=== PATIENT | male | born 1945 | race Caucasian/White ===

== ENCOUNTER → 2016-07-16 | Day surgery (SDC) | payer MEDICARE, OTHER ==
[~2016-07-16] VITALS: Ht 175.3 cm; Wt 83.0 kg
[~2016-07-16] MED LIST: ALBU17IN2 INH; ASPI81TA85 PO; CITRTAB15 PO; CO Q100C10 PO; EPINEPHrine 1MG/10ML SYRINGE 1.5IN As Ordered ONE; GLYCOPYRROLATE INJ 0.2 MG/ML 2 ML VIAL As Ordered ONE; LIDOCAINE 1% SDV INJ 30 ML VIAL As Ordered ONE; LIDOCAINE 2% INJ 100 MG/5 ML SDV (FOR ANES.) As Ordered ONE; LIDOCAINE 4% TOPICAL SOLN 50 ML BTL As Ordered ONE; LIDOCAINE VISCOUS 2% SOLN 15ML UDC As Ordered ONE; LOSA50TA20 PO; LR 1,000 ML IV SCH; MIDAZOLAM INJ 2 MG/2 ML VIAL (J2250) As Ordered ONE; NEOSTIGMINE 1MG/ML 5 ML SYRINGE (J2710) As Ordered ONE; ONDANSETRON 4MG/2ML VIAL (J2405) As Ordered ONE; ONDANSETRON 4MG/2ML VIAL (J2405) IV PRN; PRAV40TA2 PO; PROPOFOL 200 MG/20 ML VIAL As Ordered ONE; ROCURONIUM BROMIDE 50 MG/5 ML VIAL As Ordered ONE; THROMBIN SOLN 20,000 UNITS KIT As Ordered ONE; VITA10006 PO; VITA400T2 PO; dexameTHASONE 4 MG/ML 1ML VIAL (J1100) As Ordered ONE; fentaNYL 250 MCG/5 ML INJECTION (J3010) As Ordered ONE
[2016-07-16 10:41] LABS: MEAN CORPUSCULAR HEMOGLOBIN 27.3 pg (27.0-33.0); MEAN CORPUSCULAR HGB CONC 32.6 g/dl (32.0-36.5); MEAN CORPUSCULAR VOLUME 83.7 fl (80.0-96.0); WHITE BLOOD COUNT 10.7 K/mm3 (4.0-10.0)
[2016-07-16 10:59] LABS: ANION GAP 7 MEQ/L (8-16); BLOOD UREA NITROGEN 18 MG/DL (7-18); CALCIUM LEVEL 9.4 MG/DL (8.8-10.2); CARBON DIOXIDE LEVEL 30 MEQ/L (21-32); CHLORIDE LEVEL 102 MEQ/L (98-107); CREATININE FOR GFR 1.15 MG/DL (0.70-1.30); GLOMERULAR FILTRATION RATE > 60.0 (>42); GLUCOSE, FASTING 116 MG/DL (83-110); POTASSIUM SERUM 4.5 MEQ/L (3.5-5.1); SODIUM LEVEL 139 MEQ/L (136-145)
--- NOTE | 2016-07-16 15:31 | REP ---
PORTABLE CHEST: AP portable view of the chest is performed. There is no pneumothorax. Heart is upper limits of normal in size. There are mildly prominent interstitial markings in each lung base. Signed by Kee Marrufo MD 07/17/2016 04:38 P
[2016-07-16 15:50] VITALS: BP 142/71
--- NOTE | 2016-07-16 16:59 | ECGEPIP ---
Stationary ECG Study [facility] Test Date: 2016-07-16 Pat Name: PEACE AUGUSTINE [place] [facility] [place]: - Gender: M Firmware Engineer: [facility] : 1945 Requested By: XIANG ADAMES Order Number: [id number] Reading MD: Elizabeth Almonte Measurements Intervals [place] Rate: 93 P: 53 SD: 133 QRS: -50 QRSD: 108 T: 61 QT: 357 QTc: 445 Interpretive Statements SINUS RHYTHM POSSIBLE LEFT ATRIAL ENLARGEMENT LEFT ANTERIOR FASCICULAR BLOCK POSSIBLE INFERIOR MYOCARDIAL INFARCTION, PROBABLY OLD MASKED BY MAR NO PRIOR Electronically Signed On 07-16-2016 16:59:36 EST by Elizabeth Almonte
--- NOTE | 2016-07-17 12:02 | RO ---
DATE OF PROCEDURE: 07/16/2016 PREOPERATIVE DIAGNOSIS: Left lower lobe mass, mediastinal and bilateral hilar lymphadenopathy, unknown etiology. POSTOPERATIVE DIAGNOSIS: Left lower lobe mass, mediastinal and bilateral hilar lymphadenopathy, unknown etiology. PROCEDURE: EBUS with multiple fine needle aspirates of the right and left subcarinal regions. SURGEON: Dr. Bravo Martinez TEXTILE DESIGNER: Dr. Edvin Fuentes ANESTHESIA: General. PROCEDURE: The procedure explained and consent obtained. Hague procedure was followed. Mr. Ceballos was intubated and pain and sedation was handled by anesthesia. The bronchoscope was then entered into the trachea. Both the left and right lungs were examined. Normal appearing mucosa and anatomy. There was a small amount of mucoid secretions on the left which were evacuated. No endobronchial lesions. The EBUS scope was then entered into the trachea via the ETT and multiple right sided subcarinal lymph node fine needle aspirates were done. The EBUS scope was then slid down the left main stem and multiple fine needle aspirates were obtained of what appeared to be tumor. The EBUS scope was then repositioned again on the right side of the subcarinal lymph node and more specimens were obtained. Cytology indicated that we had good specimens. At this point, the EBUS scope was removed and the conventional bronchoscope was reintroduced in to the trachea for visual inspection. After ensuring visual hemostasis the bronchoscope was removed. Postoperative chest x-ray pending. FINDINGS: 1. Minimal amount of mucoid secretions on the left. 2. No endobronchial lesions. SPECIMENS: 1. Right sided subcarinal lymph node fine needle aspirate sent to cytology. 2. Left sided subcarinal lymph node and possible tumor fine needle aspirate sent to cytology. [facility]
== END | disposition home or self-care (01) ==
LOC: M SDC 10:12
PROVIDERS: ATTEND Internal Medicine Pulmonary Disease
DX: C34.32 Malignant neoplasm of lower lobe, left bronchus or lung (principal); I25.2 Old myocardial infarction; E11.9 Type 2 diabetes mellitus without complications; I10 Essential (primary) hypertension; E78.5 Hyperlipidemia, unspecified; J44.9 Chronic obstructive pulmonary disease, unspecified; Z79.82 Long term (current) use of aspirin; Z79.899 Other long term (current) drug therapy; Z87.891 Personal history of nicotine dependence
CPT/HCPCS: 31628; 31653; 36415; 71010; 80048; 85027; 88172; 88173; 88305; 88341; 88342; 93005; J1100; J2250; J2405; J2710; J3010

== ENCOUNTER → 2016-07-31 | Outpatient (CLI) | payer MEDICARE, OTHER ==
[~2016-07-31] MED LIST changes: -EPINEPHrine 1MG/10ML SYRINGE 1.5IN As Ordered ONE; -GLYCOPYRROLATE INJ 0.2 MG/ML 2 ML VIAL As Ordered ONE; +ISOVUE-370 76% 100ML VIAL (Q9967) As Ordered ONE; -LIDOCAINE 1% SDV INJ 30 ML VIAL As Ordered ONE; -LIDOCAINE 2% INJ 100 MG/5 ML SDV (FOR ANES.) As Ordered ONE; -LIDOCAINE 4% TOPICAL SOLN 50 ML BTL As Ordered ONE; -LIDOCAINE VISCOUS 2% SOLN 15ML UDC As Ordered ONE; -LR 1,000 ML IV SCH; -MIDAZOLAM INJ 2 MG/2 ML VIAL (J2250) As Ordered ONE; -NEOSTIGMINE 1MG/ML 5 ML SYRINGE (J2710) As Ordered ONE; -ONDANSETRON 4MG/2ML VIAL (J2405) As Ordered ONE; -ONDANSETRON 4MG/2ML VIAL (J2405) IV PRN; -PROPOFOL 200 MG/20 ML VIAL As Ordered ONE; -ROCURONIUM BROMIDE 50 MG/5 ML VIAL As Ordered ONE; -THROMBIN SOLN 20,000 UNITS KIT As Ordered ONE; -dexameTHASONE 4 MG/ML 1ML VIAL (J1100) As Ordered ONE; -fentaNYL 250 MCG/5 ML INJECTION (J3010) As Ordered ONE
--- NOTE | 2016-07-31 16:24 | REP ---
Clinical: Shortness of breath and pleuritic chest pain. Comparison: 07/03/2016 Technique: Axial contrast enhanced images from the thoracic inlet to the upper abdomen using 100 ml Isovue 370 intravenous contrast material with multiplanar re-formations. Findings: Satisfactory enhancement of the pulmonary vasculature is achieved and no filling defects are identified to suggest pulmonary embolus. Atherosclerotic changes to the thoracic aorta noted without aneurysm. Mild cardiomegaly suggested with minimal atherosclerotic changes to the coronary arteries and no pericardial effusion. There is significant conglomerate mediastinal and hilar adenopathy which is similar to prior examination. There is a left infrahilar lower lobe mass which appears to measure roughly 3.2 x 4.5 cm and increased from prior examination. Right middle lobe and bibasilar atelectasis noted. No pleural effusion or pneumothorax. Impression: No evidence for pulmonary embolus. Conglomerate mediastinal and hilar adenopathy with left infrahilar mass lesion increased from prior examination. Findings are compatible with neoplasm and metastatic adenopathy. Pulmonology consultation as well as PET CT may be warranted for further investigation. Signed by Carlos Martinez MD 07/31/2016 04:15 P
== END ==
LOC: M RAD 15:34
PROVIDERS: ATTEND Internal Medicine Medical Oncology
DX: R59.0 Localized enlarged lymph nodes (principal); C34.90 Malignant neoplasm of unspecified part of unspecified bronchus or lung
CPT/HCPCS: 71275; Q9967

== ENCOUNTER → 2016-08-06 | Outpatient (CLI) | payer MEDICARE, OTHER ==
[~2016-08-06] MED LIST changes: -ISOVUE-370 76% 100ML VIAL (Q9967) As Ordered ONE
--- NOTE | 2016-08-11 14:26 | REP ---
Whole body PET CT scan: Comparisons are the CT of the chest dated 07/31/2016 and outside studies from [facility] consisting of chest CT dated 07/03/2016 a nd an AP chest plain film study dated 07/16/2016. Scan is performed from skull base to the upper thighs. Neck and supraclavicular areas: There is uptake in two normal size supraclavicular nodes above the head of the right clavicle,, the standard uptake in the superior most node measuring 2.7 and the inferior most node measuring 4.5. Chest: There is uptake in the patient's known left lower lobe lung mass with the standard uptake value maximally measuring 4.1. There is uptake in the enlarged right hilar nodes with maximal standard uptake value measuring 5.4. There is uptake in the enlarged left hilar nodes with the standard uptake value measuring 3.6. There is uptake in the enlarged subcarinal mediastinal nodes with the standard uptake measure value measuring 05/00. There is uptake in a normal size right paratracheal nodes with the standard uptake value measuring 4.2. There is uptake in aorticopulmonic window nodes with the standard uptake value measuring 4.4. There is uptake in a 1 cm pleural-based nodule in the medial basilar segment of the right lower lobe in the paravertebral location with the standard uptake value measuring 6.8. Upon review, this nodule was not visible on the CT of 07/03/[address] of 07/31/2016. There is focal intense uptake at the anterior tip of the left seventh rib with the standard uptake value measuring 5.9. There is focal uptake along the anterior margin of the right scapula with the standard uptake value measuring 3.0. There is focal uptake posterolateral in the right 10th rib with the standard uptake value measuring 7.0. Abdomen, pelvis and upper thighs: There is focal uptake in the right iliac wing anteriorly with the standard uptake value measuring 6.0, and the right iliac wing posteriorly with the standard uptake value measuring 6.4. There is a tiny focus of uptake in the left femur greater trochanter measuring 1 cm in diameter with the standard uptake value of 2.3. There is a tiny uptake focus in the right acetabulum with the standard uptake value of 4.5. There is uptake in normal size internal iliac nodes bilaterally versus artifact from radio labeling of the internal iliac arteries, with the standard uptake value on the right measuring 8.0 and on the left 7.0. There are three small foci of uptake in the left gluteus jacquelyn muscle with the standard uptake values measuring 3.4, 2.3 and 1.7. There is nonspecific bowel uptake. Impression: There is hypermetabolic uptake in the patient's known left lung mass and in the known bilateral hilar and mediastinal adenopathy. There is also uptake in the cervical nodes on the right. There is uptake in a small 1 cm nodule in the medial basilar segment right lower lobe. This nodule was not visible on the comparison CT scans. Additionally, there is uptake in the left seventh rib and right tenth rib and along the anterior margin of the right scapula. There is uptake in the right iliac wing, left greater trochanter, right acetabulum, internal iliac nodes bilaterally and left gluteus jacquelyn. The study is performed with 8.0 mCi of F 18 FDG. Signed by Kee Kurtz MD 08/11/2016 02:18 P
== END ==
LOC: M RAD 11:01
PROVIDERS: ATTEND Internal Medicine Pulmonary Disease
DX: C34.32 Malignant neoplasm of lower lobe, left bronchus or lung (principal)
CPT/HCPCS: 78815; A9552

== ENCOUNTER → 2016-08-08 | Outpatient (CLI) | payer MEDICARE, OTHER ==
--- NOTE | 2016-08-08 12:17 | REP ---
Clinical: Bilateral hip pain. Technique: Neutral and frog lateral views of the bilateral hips with AP view of the pelvis. Findings: Symmetric age-related changes include increased sclerosis to the acetabular roof with very minimal marginal spurring and mild joint space narrowing. No significant periarticular calcifications are appreciated. No acute fracture or dislocation. Impression: Symmetric age-related changes to the bilateral hips. Signed by Carlos Martinez MD 08/08/2016 12:08 P
== END ==
LOC: M RAD 11:44
PROVIDERS: ATTEND Internal Medicine Medical Oncology
DX: C34.32 Malignant neoplasm of lower lobe, left bronchus or lung (principal)

== ENCOUNTER → 2016-09-25 | Outpatient (CLI) | payer MEDICARE, OTHER ==
--- NOTE | 2016-09-25 10:04 | REP ---
Clinical: Left chest mass. Technique: PA and lateral. Comparison: 07/16/2016. Findings: The mediastinum and cardiac silhouette are stable. Ill-defined perihilar and lower lobe opacities suggest the possibility of underlying adenopathy, atelectasis and infiltrates (left greater than right). Underlying mass lesion cannot definitively be excluded. Small pleural reactions noted. No pneumothorax. Skeletal structures are intact. Impression: Perihilar and lower lobe infiltrates. Underlying adenopathy and mass lesion cannot be excluded. Findings may be slightly more prominent than 07/16/2016. Signed by Carlos Martinez MD 09/25/2016 09:55 A
== END ==
LOC: M RAD 09:23
PROVIDERS: ATTEND Internal Medicine Medical Oncology
DX: R91.8 Other nonspecific abnormal finding of lung field (principal)

== ENCOUNTER 2016-11-18 15:52 | Inpatient (IN) | payer MEDICARE, OTHER ==
[~2016-11-18] VITALS: Ht 179.1 cm; Wt 71.6 kg
[2016-11-18 19:15] VITALS: BP 145/62
[2016-11-18] MEDS ORDERED: ALB2.5NEB INH (20:05)
[2016-11-18] MEDS ORDERED: IPRASOL4 INH (20:05)
[2016-11-18] MEDS ORDERED: OXYC1TAB23 PO (20:05)
[2016-11-18] MEDS ORDERED: PANT40TA2 PO (20:05)
[2016-11-18] MEDS ORDERED: PRED10TA2 PO (20:05)
[2016-11-18] MEDS ORDERED: FURO10IN17 IV (20:05)
[2016-11-18] MEDS ORDERED: GUAI1TAB PO (20:05)
[2016-11-18] MEDS ORDERED: ENOX40IN3 SC (20:05)
[2016-11-18] MEDS ORDERED: BENZ100C5 PO (20:05)
[2016-11-18] MEDS ORDERED: BUDE0.5S6 INH (20:05)
[2016-11-18] MEDS ORDERED: PEG6SYR SC (20:05)
[2016-11-18] MEDS ORDERED: BENZONATATE 100 MG CAP PO PRN (20:15)
[2016-11-18] MEDS ORDERED: ONDANSETRON 4MG/2ML VIAL (J2405) IV PRN (20:15)
[2016-11-18] MEDS ORDERED: PEGFILGRASTIM 6 MG/0.6ML SYR (NEULASTA) (J2505 PER 6MG) SC SCH (20:15)
[2016-11-18 20:42] LABS: MEAN CORPUSCULAR HEMOGLOBIN 30.3 pg (27.0-33.0); RED CELL DISTRIBUTION WIDTH 18.3 % (11.5-14.5); WHITE BLOOD COUNT 14.3 K/mm3 (4.0-10.0)
[2016-11-18 20:57] LABS: MAGNESIUM LEVEL 2.3 MG/DL (1.8-2.4)
[2016-11-18] MEDS ORDERED: LevoFLOXacin IV 500 MG in APPROPRIATE DILUENT 1 EA IV SCH (21:00)
[2016-11-18 21:02] LABS: ALBUMIN 2.4 GM/DL (3.2-5.2); ALKALINE PHOSPHATASE 72 U/L (45-117); ALT/SGPT 41 U/L (12-78); ANION GAP 9 MEQ/L (8-16); AST/SGOT 26 U/L (15-37); BILIRUBIN,TOTAL 0.5 MG/DL (0.2-1.0); BLOOD UREA NITROGEN 41 MG/DL (7-18); CALCIUM LEVEL 7.9 MG/DL (8.8-10.2); CARBON DIOXIDE LEVEL 27 MEQ/L (21-32); CHLORIDE LEVEL 97 MEQ/L (98-107); CREATININE FOR GFR 0.74 MG/DL (0.70-1.30); GLOMERULAR FILTRATION RATE > 60.0 (>42); GLUCOSE, FASTING 134 MG/DL (83-110); POTASSIUM SERUM 4.1 MEQ/L (3.5-5.1); SODIUM LEVEL 133 MEQ/L (136-145); TOTAL PROTEIN 5.4 GM/DL (6.4-8.2)
[2016-11-18] MEDS: BUDESONIDE 0.5 MG/2 ML INHALATION SUSPENSION INH SCH (21:07)
[2016-11-18] MEDS: IPRATROPIUM 0.5MG/ALBUTEROL 2.5MG INH SOL UD 3ML (DUONEB)(J7620) NEB SCH (21:07)
--- NOTE | 2016-11-18 21:40 | REPUSA ---
CT of the chest without contrast Clinical statement: Shortness of breath. Lung cancer. Technique: Multiple axial CT images were obtained with 5 mm cuts through the chest without administra tion of contrast. Comparison: 07/31/2016. Findings: There is no thoracic lymphadenopathy. The visualized portions of the thyroid gland is unrem arkable. There is minimal patchy infiltrate in the left lower lobe. There are interstitial reticulono dular infiltrates throughout the right lung, predominantly in right lower lobe. There is a moderate r ight lower lobe pleural effusion as well. Limited imaging of the upper abdomen demonstrates bilateral adrenal masses. The right adrenal mass measures 4.9 x 2.2 cm, and the left adrenal mass measures 4.0 x 2.9 cm. Cholelithiasis is also noted. There are no suspicious osseous lesions. Impression: 1. Diffuse interstitial reticulonodular infiltrate throughout the right lung, probably the right lowe r lobe with moderate right-sided pleural effusion. 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 No discrete pulmonary nodul es are seen. Clinical correlation is recommended. 2. Minimal patchy infiltrate in the left lower lobe. 3. Bilateral adrenal masses, suspicious for metastatic disease. 4. Cholelithiasis.
--- NOTE | 2016-11-18 21:41 | PHACANCOPD ---
PHARMACY VANCOMYCIN DOSING Pt Demographics Demographics Patient Age:71 , Weight:75.000 , Gender: male Adjusted Body Weight Date: 11/18/16, Adjusted Body Weight: Kg Events Past 24 Hours Events Past 24 Hours: YES: Elevation in WBC, Pending Diagnostics Vancomycin Vancomycin indication: HCAP Vancomycin Target Ranges: 10-20 mcg/ml Vancomycin Load Y/N: Yes Load Dose Date Time Vancomycin Load Dose: 1500mg Date: 11/18/16 Time: 2200 Vancomycin Dose Date: 11/18/16. Current Vancomycin Dose: [1g IV Q12H] Intermittent Dosing?: No Labs Labs Item Value Date Time White Blood Count 14.3 K/mm3 H 11/18/162004 Creatinine 0.74 MG/DL 11/18/162004 C-Reactive Protein, Quantitative 3.07 MG/DL H 11/18/162004 Micro Microbiology 11/18/16 Blood Culture, Received Pending 11/18/16 Blood Culture, Received Pending Creatinine Clearance Date:11/18/16. Estimated Creatinine Clearance: [~60ml/min]. Pending Labs Vancomycin trough scheduled 11/20/16 @0900 Assessment and Plan Maintaining Current Dose?: Yes Reason for dose change: No Dose Change Pharmacist Note Pharmacist Note Date: 11/18/16. Pharmacist note: Day #1 empiric vancomycin tx initiated with a 1500mg loading dose, followed by a maintenance regimen of 1g IV Q12H for the treatment of HCAP - aiming for a goal trough of 10-20mcg/ml. The patient is a transfer from [facility] and is also on day #2 of empiric IV levaquin and IV meropenem. PMH of MRSA is unknown, and there is no PMH of vanco use here at [facility]. WBC, pulse, and CRP are currently elevated. Blood cultures are pending. A vancomycin trough has been scheduled for 11/20/16 @ 0900. We will continue to monitor and make dose adjustments as needed. YOLANDA BAZAN PHARMACY Nov 18, 2016 21:41
[2016-11-18] MEDS: methylPREDNISolone INJ 40 MG/1 ML VIAL (J2920) IV SCH (21:43)
[2016-11-18] MEDS: guaiFENesin ER 600 MG TAB PO SCH (21:43)
[2016-11-18] MEDS: PRAVASTATIN 20 MG TAB PO SCH (21:43)
[2016-11-18] MEDS: MEROPENEM INJ 1 GM in D5W MINI-BAG PLUS 100 ML IV SCH (21:44)
[2016-11-18] MEDS: FUROSEMIDE 20 MG/2 ML VIAL (J1940) IV SCH (21:44)
[2016-11-18] MEDS: SENOKOT S TAB PO SCH (21:44)
--- NOTE | 2016-11-18 21:47 | HPE ---
DATE OF ADMISSION: 11/18/2016 PRIMARY CARE PROVIDER: Dr. Persaud ONCOLOGIST: Crys Osborn MD PUBLIC HEALTH SANITARIAN TECHNICIAN: Shayla Martinez MD CHIEF COMPLAINT: Shortness of breath. HISTORY OF PRESENT ILLNESS: Mr. Ceballos is a 71-year-old male who was transferred from [facility] due to pulmonology/oncology followup. Patient expressed that he went to [facility] on 11/09/2016, due to experiencing shortness of breath. Patient expressed that 3 days before admission he noticed that he became more out of breath and his cough had increased. Patient has been diagnosed with stage IV lung cancer in May 2016. Based on documentation, at this time patient was given palliative chemotherapy with four cycles of cytoxic chemotherapy, after that he started a new chemotherapy and has received two cycles already, but started having shortness of breath a few days before admission to [facility]. Chest x-ray in the emergency room shows right lower lobe pneumonia. Patient's white blood cell count was 24.9 but he received Neulasta 2 weeks before and the differential shows majority of it is neutrophils. Patient has a history of chronic obstructive pulmonary disease (COPD). Also, at home patient was on oxygen as needed, however, patient expressed that 3 days before admission he started using oxygen most of the time, especially at night. Patient stopped smoking cigarettes about 10 years ago and he was exposed to Agent [place] in [place] and asbestos. At [facility], patient was admitted as an inpatient on telemetry. Patient was started on Zosyn and vancomycin and due to possibility of COPD exacerbation, patient was started on breathing treatment and oxygen and continued with home medication. However, patient was transferred to [facility] for followup with oncology and pulmonology care. ALLERGIES: No known allergies. PAST MEDICAL HISTORY: 1. COPD. 2. Hypertension. 3. Osteopenia. 4. Lung cancer. 5. Myocardial infarction ([place]). PAST SURGICAL HISTORY: Aortobifemoral bypass surgery in past. FAMILY HISTORY: Patient does not know about his father or mother since they when he was very young and he was sent for adoption. Patient has one full sister and four or five half brothers and sisters. Patient expressed that his full sister is healthy for her age. Patient has a daughter who is healthy. SOCIAL HISTORY: Patient expressed that he lives alone. Patient was a former smoker. Patient denies illicit drug use. Patient denies alcohol usage. REVIEW OF SYSTEMS: GENERAL: Patient denies fever, chills, night sweats. Patient denies weight loss or weight gain. HEENT: Patient denies acute vision or hearing changes. Patient expressed that he has mild lightheadedness and dizziness when he stands up and when he ambulates. Patient denies problem with chewing food or sinusitis. NECK: Patient denies lumps, bumps, or decreased range of motion of his neck. HEART: Patient denies palpitations, racing or skipping heartbeat or chest pain. LUNGS: Patient expressed that he has shortness of breath, especially with activities, as well as coughing, and sometimes produces white sputum. ABDOMEN: Patient denies abdominal pain, nausea, vomiting, diarrhea, constipation, melena, hematochezia, or hemoptysis. NEUROLOGIC: Patient denies history of transient ischemic attack (TIA), seizure or seizure-type activities. OBJECTIVE: VITAL SIGNS: Temperature 98.2, pulse 110, respiratory rate 18, blood pressure 145/62, pulse oximetry 97% on 3 liters nasal cannula. GENERAL APPEARANCE: Patient was sitting on the bed in no acute distress. Patient was awake, alert, and oriented to time, place, and person. HEENT: Normocephalic, atraumatic. Pupils are equal and reactive to light. Oral mucous is moist. NECK: Soft, supple. No lymphadenopathy. No thyromegaly. No jugular venous distention (JVD). HEART: Regular rate and rhythm, normal S1, S2. LUNGS: Patient has inhale and exhale wheezing as well as scattered rhonchi at the base of the lung. ABDOMEN: Soft, nontender. Positive bowel sounds in all quadrants. EXTREMITIES: Patient has lower extremity edema. +2 pulses in both lower extremities. Patient has decreased strength in both lower and upper extremities possibly secondary to dyspnea. LABORATORY DATA: We have ordered laboratory data and the result is pending at this time. IMAGING STUDIES: Chest x-ray one view which was done on 11/09/2016, shows right lung base infiltration noted which are new as compared to the 05/29/2016 examination. Chest x-ray two views which was done on 11/11/2016, indicated interval development and/or increasing bilateral interstitial lung disease. This could be due to pulmonary edema versus pneumonia and there is suggestion of right lower lobe interstitial and alveolar pneumonia that has decreased at the base and otherwise no significant changes. Chest x-ray which was done on 11/13/2016, indicated worsening right lower lobe. CTA of the chest indicated no evidence of pulmonary embolism, worsening bilateral pneumonia, atelectasis, right greater than left, increased right pleural effusion. Otherwise, no significant changes. Chest x-ray which was done on 11/15/2016, indicated mild improvement in the right lung infiltration, no changes in the small right pleural effusion, and mild interstitial edema. Chest x-ray on 11/16/2016, indicated no change in the small right pleural effusion, right lobe infiltration is mildly worse, no change in the small left lower lobe infiltration, coronary artery disease. ASSESSMENT AND PLAN: 1. Pneumonia. This is possibly obstructive pneumonia secondary to lung cancer versus community-acquired pneumonia. At this time, we have started patient on Levaquin, vancomycin, and meropenem. Also, we have ordered a sputum culture and gram stain, as well as blood culture and the result is pending. Also, we have ordered CT of the chest without contrast and the result is pending at this time. 2. Chronic obstructive pulmonary disease (COPD). At this time, we have started patient on breathing treatments. Also, we have started patient on Solu-Medrol 40 mg IV every 8 hours and patient is on oxygen and Acapella. 3. Hypertension. We will continue patient on losartan 50 mg by mouth daily. 4. Cough. This is possibly secondary to pneumonia versus chronic obstructive pulmonary disease (COPD). Patient is on Tessalon Perles 100 mg by mouth three times a day as needed for cough. 5. Gastroesophageal reflux disease (GERD). Patient is on Protonix 40 mg daily. 6. History of myocardial infarction ([place]). We have ordered echocardiogram. Result is pending at this time. At this time, patient is on aspirin as well as high intensity statin (pravastatin 80 mg by mouth nightly). 7. Deep venous thrombosis (DVT) prophylaxis. Patient is on Lovenox 30 mg subcutaneous daily. My preceptor for this patient encounter was Dr. Marina Terry. The preceptor was physically present in the building during the encounter and was fully available. As needed, all aspects of the patient interview, examination, medical decision making process, and medical care plan development were reviewed and approved by the preceptor. The preceptor is aware and concurs with the plan as stated in the body of this note and will attest to such by his/her cosignature. I have both independently examined this patient as well as reviewed the H&P. I have discussed in detail with the resident the findings and plan of treatment as documented in the residents note. I will continue to follow the patient and offer further guidance to the patients care as necessary during this hospital stay. Marina KUMAR
[2016-11-18] MEDS ORDERED: VANCOMYCIN HCL 1,000 MG in D5W 0 ML IV SCH (22:00)
[2016-11-18] MEDS ORDERED: MERO1INJ IV (22:02)
[2016-11-18] MEDS ORDERED: LEVO750T13 PO (22:03)
[2016-11-18] MEDS: VANCOMYCIN HCL 1,000 MG, VIAL MATE ADAPTER 1 EACH in D5W 250 ML IV SCH (22:32)
[2016-11-18] MEDS ORDERED: VANCOMYCIN HCL 500 MG in D5W MINI-BAG PLUS 100 ML IV ONE (23:00)
[2016-11-19] VITALS (8 sets, daily range): BP systolic 92–120; BP diastolic 42–67
[2016-11-19] MEDS: IPRATROPIUM 0.5MG/ALBUTEROL 2.5MG INH SOL UD 3ML (DUONEB)(J7620) NEB PRN ×2 (01:39→15:51)
[2016-11-19] MEDS: PERCOCET 5MG/325MG TAB PO PRN ×3 (01:53→19:40)
[2016-11-19] MEDS: methylPREDNISolone INJ 40 MG/1 ML VIAL (J2920) IV SCH ×3 (04:32→21:40)
[2016-11-19] MEDS: MEROPENEM INJ 1 GM in D5W MINI-BAG PLUS 100 ML IV SCH ×3 (04:32→21:39)
[2016-11-19 05:19] LABS: MEAN CORPUSCULAR HEMOGLOBIN 29.6 pg (27.0-33.0); MEAN CORPUSCULAR HGB CONC 33.2 g/dl (32.0-36.5); MEAN CORPUSCULAR VOLUME 89.3 fl (80.0-96.0); RED CELL DISTRIBUTION WIDTH 18.1 % (11.5-14.5); WHITE BLOOD COUNT 16.2 K/mm3 (4.0-10.0)
[2016-11-19 05:40] LABS: ANION GAP 6 MEQ/L (8-16); BLOOD UREA NITROGEN 36 MG/DL (7-18); CARBON DIOXIDE LEVEL 27 MEQ/L (21-32); CHLORIDE LEVEL 96 MEQ/L (98-107); CREATININE FOR GFR 0.73 MG/DL (0.70-1.30); GLOMERULAR FILTRATION RATE > 60.0 (>42); GLUCOSE, FASTING 127 MG/DL (83-110); SODIUM LEVEL 129 MEQ/L (136-145); T UPTAKE 40 % (33-40); THYROXINE (T4) 7.9 UG/DL (4.5-12.0)
[2016-11-19] MEDS: IPRATROPIUM 0.5MG/ALBUTEROL 2.5MG INH SOL UD 3ML (DUONEB)(J7620) NEB SCH ×3 (07:11→21:03)
[2016-11-19] MEDS: BUDESONIDE 0.5 MG/2 ML INHALATION SUSPENSION INH SCH ×2 (07:11→21:03)
[2016-11-19] MEDS: ENOXAPARIN 40 MG/0.4 ML SYRINGE (J1650) SC SCH (08:54)
[2016-11-19] MEDS: LevoFLOXacin IV 500 MG in APPROPRIATE DILUENT 1 EA IV SCH (08:54)
[2016-11-19] MEDS: FUROSEMIDE 20 MG/2 ML VIAL (J1940) IV SCH ×2 (08:55→21:40)
[2016-11-19] MEDS: PANTOPRAZOLE 40MG TAB (PROTONIX) PO SCH (08:55)
[2016-11-19] MEDS: LOSARTAN 50 MG TAB PO SCH (08:56)
[2016-11-19] MEDS: ASPIRIN 81 MG ENTERIC TAB PO SCH (08:56)
[2016-11-19] MEDS: SENOKOT S TAB PO SCH ×2 (08:56→21:40)
[2016-11-19] MEDS: guaiFENesin ER 600 MG TAB PO SCH ×2 (08:56→21:40)
[2016-11-19] MEDS: VANCOMYCIN HCL 1,000 MG, VIAL MATE ADAPTER 1 EACH in D5W 250 ML IV SCH ×2 (10:27→22:36)
[2016-11-19 11:12] LABS: OSMOLALITY URINE 485 MOSM/KG (500-800)
--- NOTE | 2016-11-19 12:11 | IPNPDOC ---
Subjective Date Seen The patient was seen on 11/19/16. Subjective Chief Complaint/HPI Patient seen and examined at the bedside this morning. Patient states that his shortness of breath remains the same. He offers no other acute complaints at this time. Objective Physical Examination General Exam: Positive: Alert, Cooperative, No Acute Distress ENT Exam: Positive: Atraumatic, Mucous membr. moist/pink Neck Exam: Negative: JVD Chest Exam: Positive: Clear to auscultation, Diminished, Negative: Rales, Rhonchi Heart Exam: Positive: Rate Normal, Normal S1, Normal S2 Abdomen Exam: Positive: Soft, Negative: Tenderness Extremity Exam: Positive: Other (2+ pitting edema in the lower extremities bilaterally), Negative: Tenderness Psych Exam: Positive: Oriented x 3 Assessment /Plan Plan/VTE VTE Prophylaxis Ordered?: Yes Plan Acute on Chronic Hypoxic Failure possibly 2/2 CAP vs Progression of Underlying Lung Ca CT of the chest notable for diffuse interstitial reticular nodular infiltrate throughout the right lung with 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, possible underlying PNA could not be ruled out The patient is already being empirically covered with IV antibiotics However, the concern remains that the patient's underlying lung cancer progression may be the causative factor in the patient's increased dyspnea and increased supplemental oxygen requirement Oncology consulted We will continue to monitor the patient's respiratory status Chronic obstructive pulmonary disease Continue nebs, IV steroids, and Acapella Hyponatremia Serum sodium noted to be down trending from 133 to 129 this morning Urine studies suggestive of SIADH, 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 ca We will continue to monitor the patient's serum sodium Fluid restricted diet ordered Hypertension, stable Continue losartan History of myocardial infarction 2-D echo pending Continue aspirin, statin Chronic swelling of the lower extremities Continue Lasix Dyslipidemia Continue statin GERD Continue PPI DVT prophylaxis Continue Lovenox Pressure Ulcer Injuries Present on Admission Right + Left Elbow Stage 1 Pressure Injury Lower Coccyx Stage 2 Pressure Injury VS, I&O, 24H, Fishbone Vital Signs/I&O Vital Signs Date Time Temp Pulse Resp B/P (MAP) Pulse Ox O2 Delivery O2 Flow Rate FiO2 11/19/16 11:00 18 11/19/16 08:56 120/58 11/19/16 08:55 Nasal Cannula 3.0 11/19/16 08:00 98.0 103 96 I&O- Last 24 Hours up to 6 AM 11/19/16 06:00 Intake Total 655 ml Output Total 1575 ml Balance -920 ml Laboratory Data 24H LABS Laboratory Tests 2 11/18/16 20:05: Anion Gap 9, Glomerular Filtration Rate > 60.0, Blood Urea Nitrogen 41H, Creatinine 0.74, Sodium Level 133L, Potassium Level 4.1, Chloride Level 97L, Carbon Dioxide Level 27, Calcium Level 7.9L, Aspartate Amino Transf (AST/SGOT) 26, Alanine Aminotransferase (ALT/SGPT) 41, Alkaline Phosphatase 72, Total Bilirubin 0.5, Total Protein 5.4L, Albumin 2.4L, Magnesium Level 2.3, C- Reactive Protein, Quantitative 3.07H, Albumin/Globulin Ratio 0.80L 11/18/16 20:12: B-Type Natriuretic Peptide 182H 11/19/16 04:57: Anion Gap 6L, Glomerular Filtration Rate > 60.0, Blood Urea Nitrogen 36H, Creatinine 0.73, Sodium Level 129L, Potassium Level 4.0, Chloride Level 96L, Carbon Dioxide Level 27, Calcium Level 8.0L, C-Reactive Protein, Quantitative 3.44H, Thyroid Stimulating Hormone (TSH) 1.670, Free Thyroxine Index 3.2, Thyroxine (T4) 7.9, Triiodothyronine (T3) Uptake 40 11/19/16 08:24: Osmolality 279L 11/19/16 10:35: Urine Random Osmolality 485L, Urine Random Sodium 131 CBC/BMP Laboratory Tests 11/18/16 20:05 Red Blood Count 3.76 L, Mean Corpuscular Volume 89.0, Mean Corpuscular Hemoglobin 30.3, Mean Corpuscular Hemoglobin Concent 34.0, Red Cell Distribution Width 18.3 H, Calcium Level 7.9 L, Aspartate Amino Transf (AST/SGOT ) 26, Alanine Aminotransferase (ALT/SGPT) 41, Alkaline Phosphatase 72, Total Bilirubin 0.5, Total Protein 5.4 L, Albumin 2.4 L 11/19/16 04:57 Calcium Level 8.0 L 11/19/16 04:58 Red Blood Count 4.13 L, Mean Corpuscular Volume 89.3, Mean Corpuscular Hemoglobin 29.6, Mean Corpuscular Hemoglobin Concent 33.2, Red Cell Distribution Width 18.1 H Microbiology Microbiology 11/18/16 Blood Culture, Received Pending 11/18/16 Blood Culture, Received Pending 11/18/16 Gram Stain - Final, Resulted 11/18/16 Sputum Culture, Resulted Pending CARLOS GROSS MD Nov 19, 2016 12:11
[2016-11-19] MEDS: PRAVASTATIN 20 MG TAB PO SCH (21:40)
[2016-11-20] VITALS (7 sets, daily range): BP systolic 91–114; BP diastolic 56–68
[2016-11-20] MEDS: IPRATROPIUM 0.5MG/ALBUTEROL 2.5MG INH SOL UD 3ML (DUONEB)(J7620) NEB SCH ×4 (01:57→20:41)
[2016-11-20] MEDS: PERCOCET 5MG/325MG TAB PO PRN ×5 (04:08→22:52)
[2016-11-20] MEDS ORDERED: SLF 3 ML SYR IV PRN (04:15)
[2016-11-20] MEDS: MEROPENEM INJ 1 GM in D5W MINI-BAG PLUS 100 ML IV SCH (05:04)
[2016-11-20] MEDS: methylPREDNISolone INJ 40 MG/1 ML VIAL (J2920) IV SCH (05:04)
[2016-11-20] MEDS: SLF 3 ML SYR IV SCH ×3 (05:05→22:41)
[2016-11-20 06:27] LABS: MEAN CORPUSCULAR HEMOGLOBIN 29.8 pg (27.0-33.0); MEAN CORPUSCULAR HGB CONC 34.1 g/dl (32.0-36.5); MEAN CORPUSCULAR VOLUME 87.2 fl (80.0-96.0); RED CELL DISTRIBUTION WIDTH 17.6 % (11.5-14.5); WHITE BLOOD COUNT 12.4 K/mm3 (4.0-10.0)
[2016-11-20 06:46] LABS: ANION GAP 9 MEQ/L (8-16); BLOOD UREA NITROGEN 32 MG/DL (7-18); CALCIUM LEVEL 8.1 MG/DL (8.8-10.2); CARBON DIOXIDE LEVEL 28 MEQ/L (21-32); CHLORIDE LEVEL 92 MEQ/L (98-107); CREATININE FOR GFR 0.65 MG/DL (0.70-1.30); GLOMERULAR FILTRATION RATE > 60.0 (>42); GLUCOSE, FASTING 132 MG/DL (83-110); POTASSIUM SERUM 3.8 MEQ/L (3.5-5.1); SODIUM LEVEL 129 MEQ/L (136-145)
[2016-11-20] MEDS: BUDESONIDE 0.5 MG/2 ML INHALATION SUSPENSION INH SCH ×2 (07:17→20:41)
[2016-11-20] MEDS: SENOKOT S TAB PO SCH ×3 (10:00→22:40)
[2016-11-20] MEDS: LOSARTAN 50 MG TAB PO SCH (10:00)
[2016-11-20] MEDS: FUROSEMIDE 20 MG/2 ML VIAL (J1940) IV SCH ×2 (10:00→22:40)
[2016-11-20] MEDS: PANTOPRAZOLE 40MG TAB (PROTONIX) PO SCH (10:03)
[2016-11-20] MEDS: ASPIRIN 81 MG ENTERIC TAB PO SCH (10:03)
[2016-11-20] MEDS: guaiFENesin ER 600 MG TAB PO SCH ×3 (10:03→22:40)
[2016-11-20] MEDS: ENOXAPARIN 40 MG/0.4 ML SYRINGE (J1650) SC SCH (10:06)
[2016-11-20] MEDS: LevoFLOXacin IV 500 MG in APPROPRIATE DILUENT 1 EA IV SCH (10:07)
[2016-11-20] MEDS: IPRATROPIUM 0.5MG/ALBUTEROL 2.5MG INH SOL UD 3ML (DUONEB)(J7620) NEB PRN (10:43)
--- NOTE | 2016-11-20 11:30 | IPNPDOC ---
Subjective Date Seen The patient was seen on 11/20/16. Subjective Chief Complaint/HPI Patient seen and examined at the bedside. Denies any acute overnight complaints. Objective Physical Examination General Exam: Positive: Alert, Cooperative, No Acute Distress ENT Exam: Positive: Atraumatic, Mucous membr. moist/pink Neck Exam: Negative: JVD Chest Exam: Positive: Clear to auscultation, Diminished, Negative: Rales, Rhonchi Heart Exam: Positive: Rate Normal, Normal S1, Normal S2 Abdomen Exam: Positive: Soft, Negative: Tenderness Extremity Exam: Positive: Other (1+ pitting edema in the lower extremities bilaterally), Negative: Tenderness Psych Exam: Positive: Oriented x 3 Assessment /Plan Plan/VTE VTE Prophylaxis Ordered?: Yes Plan Acute on Chronic Hypoxic Failure possibly 2/2 CAP vs Progression of Underlying Lung Ca CT of the chest notable for diffuse interstitial reticular nodular infiltrate throughout the right lung with 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, possible underlying PNA could not be ruled out The patient has already been receiving empiric antibiotics since 11/09 from [facility]-- We will D/C the antibiotics at this time CTA of the Chest negative for PE on 11/14/16 from [facility] The concern remains that the patient's underlying lung cancer progression may be the causative factor in the patient's increased dyspnea and increased supplemental oxygen requirement Oncology consulted--awaiting their input Chronic obstructive pulmonary disease Continue nebs, IV steroids, and Acapella Hyponatremia Serum sodium noted to be down trending from 133 to 129 this morning Urine studies suggestive of SIADH, 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 ca We will continue to monitor the patient's serum sodium Fluid restricted diet ordered Hypertension, stable Continue losartan History of myocardial infarction 2-D echo pending Continue aspirin, statin Chronic swelling of the lower extremities Continue Lasix Dyslipidemia Continue statin GERD Continue PPI DVT prophylaxis Continue Lovenox Pressure Ulcer Injuries Present on Admission Right + Left Elbow Stage 1 Pressure Injury Lower Coccyx Stage 2 Pressure Injury VS, I&O, 24H, Fishbone Vital Signs/I&O Vital Signs Date Time Temp Pulse Resp B/P (MAP) Pulse Ox O2 Delivery O2 Flow Rate FiO2 11/20/16 10:08 91/59 (70) 11/20/16 10:04 22 11/20/16 08:00 97.5 115 98 Nasal Cannula 3.0 I&O- Last 24 Hours up to 6 AM 11/20/16 06:00 Intake Total 1500 ml Output Total 2250 ml Balance -750 ml Laboratory Data 24H LABS Laboratory Tests 2 11/20/16 05:56: Anion Gap 9, Glomerular Filtration Rate > 60.0, Blood Urea Nitrogen 32H, Creatinine 0.65L, Sodium Level 129L, Potassium Level 3.8, Chloride Level 92L, Carbon Dioxide Level 28, Calcium Level 8.1L, C-Reactive Protein, Quantitative 1.84H 11/20/16 09:54: Vancomycin Level Trough 13.0 CBC/BMP Laboratory Tests 11/19/16 12:10 11/20/16 05:56 Red Blood Count 3.88 L, Mean Corpuscular Volume 87.2, Mean Corpuscular Hemoglobin 29.8, Mean Corpuscular Hemoglobin Concent 34.1, Red Cell Distribution Width 17.6 H, Calcium Level 8.1 L Microbiology Microbiology 11/18/16 Blood Culture - Preliminary, Resulted No growth after 24 hours . All specim... 11/18/16 Blood Culture - Preliminary, Resulted No growth after 24 hours . All specim... 11/18/16 Gram Stain - Final, Resulted 11/18/16 Sputum Culture, Resulted Pending CARLOS GROSS MD Nov 20, 2016 11:30
[2016-11-20] MEDS: PRAVASTATIN 20 MG TAB PO SCH (22:40)
[2016-11-21] MEDS: IPRATROPIUM 0.5MG/ALBUTEROL 2.5MG INH SOL UD 3ML (DUONEB)(J7620) NEB SCH ×4 (01:31→20:42)
[2016-11-21] MEDS: PERCOCET 5MG/325MG TAB PO PRN ×4 (03:49→20:14)
[2016-11-21 04:48] VITALS: BP 90/48
[2016-11-21] MEDS: SLF 3 ML SYR IV SCH ×3 (05:30→20:15)
--- NOTE | 2016-11-21 06:32 | CR ---
DATE OF CONSULTATION: 11/20/2016 REFERRING PHYSICIAN: Anthony Fajardo MD. REASON FOR CONSULTATION: Stage IV poorly differentiated non-small cell lung carcinoma with evidence of progression. HISTORY OF PRESENT ILLNESS: Dimitris Ceballos is a 71-year-old gentleman, patient that has been followed by Dr. 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 He was initially treated with carboplatin, taxol, diagnosis in August of 2016, next with carboplatin etoposide. Most recent chemotherapy was on 10/21/2016 where he was treated with carboplatin etoposide. Patient was transferred from [facility] after 10 days of treatment with antibiotics for a presumed pneumonia. On transfer to [facility], a CT scan of the chest was done on 11/18/2016 revealing diffuse interstitial reticulonodular infiltrate throughout the right lung, right lower lobe and a moderate right-sided pleural effusion suggestive of lymphangitic carcinomatosis. He currently denies any fevers, cough. He is oxygen dependent. No worsening of his oxygen status at this time. Hematology/oncology was consulted given his prolonged treatment on antibiotics with no significant improvement at the outside hospital. PAST MEDICAL HISTORY: 1. Hypertension. 2. Dyslipidemia. 3. Coronary artery disease status post myocardial infarction (MD) in 2005. 4. Chronic obstructive pulmonary disease (COPD). 5. Peripheral vascular disease. 6. Exposure to asbestos and Agent [employer]. 7. Prior history of tobacco use. PAST SURGICAL HISTORY: 1. Left cataract surgery. 2. Bilateral femoral bypass on cardiac catheterization. MEDICATIONS AT HOME: Include: - losartan - simvastatin - aspirin - albuterol - Citracal - Centrum Silver - vitamin C - CoQ 10 He has been on antibiotics with intravenous (IV) at [facility] Zosyn and vancomycin. ALLERGIES: No known drug allergies. SOCIAL HISTORY: Poly pack-year history of tobacco use. No alcohol use. He is . FAMILY HISTORY: Father with colon cancer. Mother had lung cancer. PHYSICAL EXAMINATION: VITAL SIGNS: Temperature is 98, pulse 100, blood pressure is 98/56, and oxygen saturation is 98% on 3 liters. GENERAL: He does have dyspnea, but he is comfortable in no acute distress. HEENT: No pallor. Anicteric sclerae. Moist mucous membranes. Oropharynx is clear. HEART: Regular rate and rhythm. No murmurs. Normal S1, S2. LUNGS: Decreased breath sounds at the bases. No appreciable crackles or rales. ABDOMEN: Soft, nontender, nondistended. No hepatosplenomegaly or masses. EXTREMITIES: 2+ bilateral pitting edema. LABORATORIES AND STUDIES: CBC with a white count of 12,400, hemoglobin of 11.5, platelets of 215,000. Chemistry panel with a sodium of 129, creatinine is 0.65. 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 IMPRESSION AND RECOMMENDATION: 71-year-old gentleman with metastatic stage IV poorly differentiated non-small cell lung carcinoma, no primary histology identified, PD-L1 low, EGF ROS1 negative with metastases to the bilateral adrenals, skeletal metastases and hilar node involvement, as well as supraclavicular lymph node involvement. He has been treated with carboplatin, taxol, and carboplatin etoposide, now with evidence of progression versus atypical pneumonia. He does appear to be hemodynamically stable and with atypical pneumonia he would presumably be sicker. Although, a bronchoscopy could be considered and munitions worker could be consulted. However, I suspect that this is progression of his metastatic disease. I did discuss next line of therapy, which is a checkpoint inhibitor. Upon discharge, he will followup with Dr. Crys Osborn for further evaluation and discussion of this treatment regimen, which he is willing to proceed with. MTDD
[2016-11-21] MEDS: BUDESONIDE 0.5 MG/2 ML INHALATION SUSPENSION INH SCH ×2 (07:14→20:41)
[2016-11-21 07:15] VITALS: BP 90/50
[2016-11-21] MEDS: ENOXAPARIN 40 MG/0.4 ML SYRINGE (J1650) SC SCH (07:54)
[2016-11-21] MEDS: ASPIRIN 81 MG ENTERIC TAB PO SCH (07:54)
[2016-11-21] MEDS: SENOKOT S TAB PO SCH ×2 (07:56→20:15)
[2016-11-21] MEDS: PANTOPRAZOLE 40MG TAB (PROTONIX) PO SCH (07:56)
[2016-11-21] MEDS: guaiFENesin ER 600 MG TAB PO SCH ×2 (07:56→20:18)
[2016-11-21] MEDS: FUROSEMIDE 20 MG/2 ML VIAL (J1940) IV SCH ×2 (07:58→20:34)
[2016-11-21] MEDS ORDERED: predniSONE 20 MG TAB PO SCH (09:00)
[2016-11-21] MEDS: LOSARTAN 50 MG TAB PO SCH (09:00)
[2016-11-21] MEDS: IPRATROPIUM 0.5MG/ALBUTEROL 2.5MG INH SOL UD 3ML (DUONEB)(J7620) NEB PRN (10:02)
--- NOTE | 2016-11-21 10:50 | IPNPDOC ---
Subjective Date Seen The patient was seen on 11/21/16. Subjective Chief Complaint/HPI Patient seen and examined at the bedside. States that he remains short of breath. Denies any acute overnight complaints. Objective Physical Examination General Exam: Positive: Alert, Cooperative, No Acute Distress ENT Exam: Positive: Atraumatic, Mucous membr. moist/pink Neck Exam: Negative: JVD Chest Exam: Positive: Clear to auscultation, Diminished, Negative: Rales, Rhonchi Heart Exam: Positive: Rate Normal, Normal S1, Normal S2 Abdomen Exam: Positive: Soft, Negative: Tenderness Extremity Exam: Positive: Other (1+ pitting edema in the lower extremities bilaterally), Negative: Tenderness Psych Exam: Positive: Oriented x 3 Assessment /Plan Plan/VTE VTE Prophylaxis Ordered?: Yes Plan Acute on Chronic Hypoxic Failure possibly 2/2 CAP vs Progression of Underlying Lung Ca CT of the chest notable for diffuse interstitial reticular nodular infiltrate throughout the right lung with 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, possible underlying PNA could not be ruled out The patient had already been receiving empiric antibiotics since 11/09 from [facility]-- We will D/C the antibiotics at this time CTA of the Chest negative for PE on 11/14/16 from [facility] The concern remains that the patient's underlying lung cancer progression may be the causative factor in the patient's increased dyspnea and increased supplemental oxygen requirement Oncology input appreciated--patient will need to f/u as outpatient for next line therapy Chronic obstructive pulmonary disease Continue nebs, Tapering PO steroids, and Acapella Hyponatremia Urine studies suggestive of SIADH, 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 We will continue to assess his functional status with physical therapy. I did discuss the need for possible rehabilitation/halfway placement for the patient in view of his limitations. VS, I&O, 24H, Fishbone Vital Signs/I&O Vital Signs Date Time Temp Pulse Resp B/P (MAP) Pulse Ox O2 Delivery O2 Flow Rate FiO2 11/21/16 07:55 24 Room Air 11/21/16 07:47 3.0 11/21/16 07:15 97.2 110 90/50 (59) 98 I&O- Last 24 Hours up to 6 AM 11/21/16 06:00 Intake Total 410 ml Output Total 1025 ml Balance -615 ml Laboratory Data Microbiology Microbiology 11/18/16 Blood Culture - Preliminary, Resulted No Growth after 48 hours. All Specime... 11/18/16 Blood Culture - Preliminary, Resulted No Growth after 48 hours. All Specime... 11/18/16 Gram Stain - Final, Resulted 11/18/16 Sputum Culture, Resulted Pending CARLOS GROSS MD Nov 21, 2016 10:49
[2016-11-21 12:00] VITALS: BP 100/60
[2016-11-21 14:00] VITALS: O2SAT 97
[2016-11-21 16:00] VITALS: BP 128/74
--- NOTE | 2016-11-21 20:00 | ECHO ---
DATE OF PROCEDURE: 11/19/2016 DATE OF : 1945 PATIENT LOCATION: Room 3212 REASON FOR THE ECHOCARDIOGRAM: Edema. REFERRING PROVIDER: Dr. Terry 2D MEASUREMENTS: IVS: 1.1 cm LVPW: 1.1 cm LV: 4.5 cm LA: 2.8 cm Aorta: 3.5 cm IVC: 1.9 cm DOPPLER MEASUREMENTS: Peak velocity across the aortic valve: 0.82 m/s Peak velocity across the LVOT: 0.7 m/s Mitral E: 0.48, Mitral A: 0.58 with a ratio of 0.83 Maximum tricuspid valve velocity: 2.9 m/s 2D COMMENTS: 1. Technically limited study due to poor acoustic window. 2. The left ventricular size is normal but left ventricular systolic function appeared to be mildly depressed in limited views. The basal and mid anterior septum appear to be hypokinetic. The estimated global left ventricular systolic ejection fraction is 45%. 3. Normal left atrium. Normal right atrium and right ventricle. 4. The atrial septum did not reveal any defect or shunt. 5. Normal aortic root. 6. No pericardial effusion. 7. The aortic valve, mitral valve, tricuspid valve, and pulmonic valve appear to be normal. The proximal pulmonary artery branches were not well visualized. 8. The inferior vena cava appeared to be normal in size, central venous pressure is probably normal. DOPPLER: It detects mild mitral regurgitation and mild to moderate tricuspid regurgitation. The calculated pulmonary artery systolic pressure varied between 40-50 mmHg. Abnormal relaxation pattern was noted across the mitral valve annulus consistent with grade 1 left ventricular diastolic dysfunction. IMPRESSION: 1. Normal global left ventricular systolic function. There were some features of left ventricular diastolic dysfunction, grade 1. 2. Mild mitral regurgitation. 3. Mild to moderate tricuspid regurgitation with moderate pulmonary hypertension. 4. Aortic valve sclerosis without stenosis or aortic regurgitation. 5. The patient was noted during the test to be mildly tachycardic, probably mild sinus tachycardia with a heart rate that varied at times between 100 and 110 beats per minute. MTDD
[2016-11-21] MEDS: PRAVASTATIN 20 MG TAB PO SCH (20:15)
[2016-11-21 22:00] VITALS: BP 96/46
[2016-11-22] MEDS: IPRATROPIUM 0.5MG/ALBUTEROL 2.5MG INH SOL UD 3ML (DUONEB)(J7620) NEB SCH ×4 (02:20→20:08)
[2016-11-22] MEDS: PERCOCET 5MG/325MG TAB PO PRN ×3 (03:19→13:27)
[2016-11-22 06:00] VITALS: BP 103/59
[2016-11-22] MEDS: ACETAMINOPHEN TAB 650MG DOSE (2X325MG) PO PRN (06:02)
[2016-11-22] MEDS: SLF 3 ML SYR IV SCH ×3 (06:03→19:53)
[2016-11-22] MEDS: BUDESONIDE 0.5 MG/2 ML INHALATION SUSPENSION INH SCH ×2 (07:14→20:06)
[2016-11-22] MEDS: PANTOPRAZOLE 40MG TAB (PROTONIX) PO SCH (08:20)
[2016-11-22] MEDS: FUROSEMIDE 20 MG/2 ML VIAL (J1940) IV SCH ×2 (08:20→20:00)
[2016-11-22] MEDS: SENOKOT S TAB PO SCH ×2 (08:21→19:52)
[2016-11-22] MEDS: ASPIRIN 81 MG ENTERIC TAB PO SCH (08:21)
[2016-11-22] MEDS: ENOXAPARIN 40 MG/0.4 ML SYRINGE (J1650) SC SCH (08:23)
[2016-11-22 08:51] LABS: ANION GAP 9 MEQ/L (8-16); BLOOD UREA NITROGEN 50 MG/DL (7-18); CALCIUM LEVEL 8.8 MG/DL (8.8-10.2); CARBON DIOXIDE LEVEL 26 MEQ/L (21-32); CHLORIDE LEVEL 94 MEQ/L (98-107); CREATININE FOR GFR 0.66 MG/DL (0.70-1.30); GLOMERULAR FILTRATION RATE > 60.0 (>42); GLUCOSE, FASTING 114 MG/DL (83-110); POTASSIUM SERUM 3.9 MEQ/L (3.5-5.1); SODIUM LEVEL 129 MEQ/L (136-145)
[2016-11-22] MEDS ORDERED: predniSONE 10 MG TAB PO SCH (09:00)
[2016-11-22] MEDS: guaiFENesin ER 600 MG TAB PO SCH ×2 (09:00→19:52)
[2016-11-22] MEDS: LOSARTAN 50 MG TAB PO SCH (09:00)
[2016-11-22 09:14] LABS: MEAN CORPUSCULAR HEMOGLOBIN 29.8 pg (27.0-33.0); MEAN CORPUSCULAR VOLUME 87.5 fl (80.0-96.0); RED CELL DISTRIBUTION WIDTH 17.2 % (11.5-14.5); WHITE BLOOD COUNT 19.4 K/mm3 (4.0-10.0)
--- NOTE | 2016-11-22 11:44 | IPNPDOC ---
Subjective Date Seen The patient was seen on 11/22/16. Subjective Chief Complaint/HPI Patient seen and examined at the bedside. States that he still has bouts of shortness of breath but otherwise is comfortable. Objective Physical Examination General Exam: Positive: Alert, Cooperative, No Acute Distress ENT Exam: Positive: Atraumatic, Mucous membr. moist/pink Neck Exam: Negative: JVD Chest Exam: Positive: Clear to auscultation, Diminished, Negative: Rales, Rhonchi Heart Exam: Positive: Rate Normal, Normal S1, Normal S2 Abdomen Exam: Positive: Soft, Negative: Tenderness Extremity Exam: Positive: Other (1+ pitting edema in the lower extremities bilaterally), Negative: Tenderness Psych Exam: Positive: Oriented x 3 Assessment /Plan Plan/VTE VTE Prophylaxis Ordered?: Yes Plan Acute on Chronic Hypoxic Failure possibly 2/2 CAP vs Progression of Underlying Lung Ca CT of the chest notable for diffuse interstitial reticular nodular infiltrate throughout the right lung with 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, possible underlying PNA could not be ruled out The patient had already been receiving empiric antibiotics since 11/09 from [facility]-- We will D/C the antibiotics at this time CTA of the Chest negative for PE on 11/14/16 from [facility] The concern remains that the patient's underlying lung cancer progression may be the causative factor in the patient's increased dyspnea and increased supplemental oxygen requirement Oncology input appreciated--at this time it appears that the patient has seen a significant functional decline in his performance status 2/2 SOB from underlying malignancy. His options include possible hospice placement vs inpatient chemotherapy. The family is still trying to decide what the option would be. We will follow up Chronic obstructive pulmonary disease Continue nebs, Tapering PO steroids, and Acapella Hyponatremia Urine studies suggestive of SIADH, 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 At this time it appears that the patient has seen a significant functional decline in his performance status 2/2 SOB. His options include possible hospice placement vs inpatient chemotherapy. We will follow up with the patient and family decision. PFS on board. Continue PT in the interim. VS, I&O, 24H, Fishbone Vital Signs/I&O Vital Signs Date Time Temp Pulse Resp B/P (MAP) Pulse Ox O2 Delivery O2 Flow Rate FiO2 11/22/16 09:00 95/55 11/22/16 08:19 18 11/22/16 06:00 97.0 103 90 Nasal Cannula 3.0 I&O- Last 24 Hours up to 6 AM 11/22/16 06:00 Intake Total 720 ml Output Total 950 ml Balance -230 ml Laboratory Data 24H LABS Laboratory Tests 2 11/22/16 08:10: Anion Gap 9, Glomerular Filtration Rate > 60.0, Blood Urea Nitrogen 50#H, Creatinine 0.66L, Sodium Level 129L, Potassium Level 3.9, Chloride Level 94L, Carbon Dioxide Level 26, Calcium Level 8.8 CBC/BMP Laboratory Tests 11/22/16 08:10 Calcium Level 8.8 11/22/16 08:50 Red Blood Count 4.13 L, Mean Corpuscular Volume 87.5, Mean Corpuscular Hemoglobin 29.8, Mean Corpuscular Hemoglobin Concent 34.0, Red Cell Distribution Width 17.2 H Microbiology Microbiology 11/18/16 Blood Culture - Preliminary, Resulted No Growth after 72 hours. All specime... 11/18/16 Blood Culture - Preliminary, Resulted No Growth after 72 hours. All specime... 11/18/16 Gram Stain - Final, Complete 11/18/16 Sputum Culture - Final, Complete CARLOS GROSS MD Nov 22, 2016 11:44
[2016-11-22] MEDS: IPRATROPIUM 0.5MG/ALBUTEROL 2.5MG INH SOL UD 3ML (DUONEB)(J7620) NEB PRN (11:55)
[2016-11-22] MEDS ORDERED: NALOXONE INJ 0.4 MG/1 ML VIAL (J2310) IV PRN (13:45)
[2016-11-22] MEDS ORDERED: MORPHINE 2 MG/ML 1ML SYRINGE IV PRN (13:45)
[2016-11-22] MEDS: oxyCODONE 10 MG CR TAB PO SCH ×2 (13:56→19:51)
[2016-11-22 14:00] VITALS: BP 112/67
--- NOTE | 2016-11-22 14:34 | CR ---
DATE: 11/22/2016 REASON FOR CONSULTATION: Prognosis of advanced lung cancer. HISTORY OF PRESENT ILLNESS: Mr. Ceballos is a 71-year-old man with known metastatic lung cancer with bone metastases, initially diagnosed in July 2016. He has been receiving chemotherapy initially with carboplatin/paclitaxel and switched to carboplatin/etoposide chemotherapy for disease progression. He is currently admitted for increasing shortness of breath with a chest CT showing diffuse interstitial reticular nodular infiltrate throughout the right lung, moderate right sided pleural effusion, the former was suggestive of lymphangitic carcinomatosis. There was also note of bilateral adrenal masses, suspicious for metastatic disease. Mr. Ceballos had a discussion on treatment options with Dr. Qureshi two days ago, but wanted an update on his prognosis. I was therefore called to see him today. PHYSICAL EXAMINATION: Mr. Ceballos was lying comfortably on the bed, not in distress. Oxygen saturation 90% on 3 liters nasal cannula. He had no oral mucosal lesions. Lungs with fair air entry. No rales, rhonchi or wheezes. Abdomen was soft, nontender. No guarding. Positive bowel sounds. Extremities with bilateral lower extremity edema. IMPRESSION AND PLAN: I discussed with Mr. Ceballos that he has a fairly aggressive lung cancer. He went through two lines of treatment with no significant response. With the first line he did have disease progression after two cycles. With the second chemotherapy regimen, specifically carboplatin/etoposide, he apparently had stable disease but the most recent CT scan shows disease progression. I discussed that in this scenario, treatment options include additional chemotherapy, such as Docetaxel chemotherapy or immunotherapy such as Nivolumab. I discussed that chemotherapy would not be a prudent option for him as his performance status is suboptimal. The second option would be immunotherapy, which in general is fairly well tolerated but could cause immunological reaction, such as hepatitis, dermatitis, gastroenteritis, thyroiditis, and pneumonitis. Immunotherapy usually takes some time to take effect and Mr. Ceballos may not have that luxury of time on hand because of the aggressiveness of his lung cancer. I discussed all options with him. It seems that he cannot go home and needs to be discharged to a [facility]pc. Another option that I discussed was hospice care. I discussed the logistics of hospice care with Mr. Ceballos. After our discussion, he wanted more time to think about the above options before making a decision. I also discussed that he could wait for Dr. Osborn, his primary medical oncologist for a further discussion on his treatment options. For now, Mr. Ceballos wanted more time to think about the hospice option or further treatment and he also wanted to speak to Dr. Osborn. Thank you for this referral. STACY
[2016-11-22] MEDS: PRAVASTATIN 20 MG TAB PO SCH (19:52)
[2016-11-22 20:03] VITALS: BP 86/50
[2016-11-22 22:00] VITALS: BP 115/57
[2016-11-23] MEDS: PERCOCET 5MG/325MG TAB PO PRN ×5 (00:02→18:33)
[2016-11-23] MEDS: IPRATROPIUM 0.5MG/ALBUTEROL 2.5MG INH SOL UD 3ML (DUONEB)(J7620) NEB SCH ×4 (01:15→19:56)
[2016-11-23 05:48] LABS: MEAN CORPUSCULAR HGB CONC 33.8 g/dl (32.0-36.5); MEAN CORPUSCULAR VOLUME 88.8 fl (80.0-96.0); RED CELL DISTRIBUTION WIDTH 17.4 % (11.5-14.5)
[2016-11-23 05:50] LABS: ANION GAP 6 MEQ/L (8-16); BLOOD UREA NITROGEN 42 MG/DL (7-18); CALCIUM LEVEL 8.3 MG/DL (8.8-10.2); CARBON DIOXIDE LEVEL 31 MEQ/L (21-32); CHLORIDE LEVEL 94 MEQ/L (98-107); CREATININE FOR GFR 0.62 MG/DL (0.70-1.30); GLOMERULAR FILTRATION RATE > 60.0 (>42); GLUCOSE, FASTING 102 MG/DL (83-110); POTASSIUM SERUM 3.9 MEQ/L (3.5-5.1); SODIUM LEVEL 131 MEQ/L (136-145)
[2016-11-23] MEDS: SLF 3 ML SYR IV SCH ×3 (05:55→21:34)
[2016-11-23 06:00] VITALS: BP 119/58
[2016-11-23] MEDS: BUDESONIDE 0.5 MG/2 ML INHALATION SUSPENSION INH SCH ×2 (07:14→19:56)
[2016-11-23] MEDS: ACETAMINOPHEN TAB 650MG DOSE (2X325MG) PO PRN (08:21)
[2016-11-23] MEDS: PANTOPRAZOLE 40MG TAB (PROTONIX) PO SCH (08:22)
[2016-11-23] MEDS: oxyCODONE 10 MG CR TAB PO SCH ×2 (08:22→21:33)
[2016-11-23] MEDS: ASPIRIN 81 MG ENTERIC TAB PO SCH (08:22)
[2016-11-23] MEDS: ENOXAPARIN 40 MG/0.4 ML SYRINGE (J1650) SC SCH (08:22)
[2016-11-23 09:00] VITALS: BP 119/58
[2016-11-23] MEDS: SENOKOT S TAB PO SCH ×2 (09:00→21:34)
[2016-11-23] MEDS: LOSARTAN 50 MG TAB PO SCH (09:00)
[2016-11-23] MEDS ORDERED: predniSONE 20 MG TAB PO SCH (09:00)
[2016-11-23] MEDS: FUROSEMIDE 20 MG TAB PO SCH ×2 (09:00→16:28)
[2016-11-23] MEDS ORDERED: MOM 30ML SUSPENSION UDC PO PRN (10:15)
--- NOTE | 2016-11-23 11:46 | IPNPDOC ---
Subjective Date Seen The patient was seen on 11/23/16. Subjective Chief Complaint/HPI Patient seen and examined at the bedside this morning. States that his respiratory status is stable at this time, however he does feel significantly short of breath with ambulation and sometimes at rest. Notes that his pain is currently well controlled. Denies any acute overnight complaints. Objective Physical Examination General Exam: Positive: Alert, Cooperative, No Acute Distress ENT Exam: Positive: Atraumatic, Mucous membr. moist/pink Neck Exam: Negative: JVD Chest Exam: Positive: Clear to auscultation, Diminished, Negative: Rales, Rhonchi Heart Exam: Positive: Rate Normal, Normal S1, Normal S2 Abdomen Exam: Positive: Soft, Negative: Tenderness Extremity Exam: Positive: Other (2+ pitting edema in the lower extremities bilaterally), Negative: Tenderness Psych Exam: Positive: Oriented x 3 Assessment /Plan Plan/VTE VTE Prophylaxis Ordered?: Yes Plan Acute on Chronic Hypoxic Failure possibly 2/2 CAP vs Progression of Underlying Lung Ca CT of the chest notable for diffuse interstitial reticular nodular infiltrate throughout the right lung with 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, possible underlying PNA could not be ruled out The patient had already been receiving empiric antibiotics since 11/09 from [facility]-- We will D/C the antibiotics at this time CTA of the Chest negative for PE on 11/14/16 from [facility] The concern remains that the patient's underlying lung cancer progression may be the causative factor in the patient's increased dyspnea and increased supplemental oxygen requirement Oncology input appreciated--at this time it appears that the patient has seen a significant functional decline in his performance status 2/2 SOB from underlying malignancy. His options include possible hospice placement vs inpatient chemotherapy. The family is still trying to decide what the option would be. We will follow up Chronic obstructive pulmonary disease Continue nebs, Tapering PO steroids, and Acapella Hyponatremia Urine studies suggestive of SIADH, 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 ca We will continue to monitor the patient's serum sodium Fluid restricted diet ordered Hypertension, stable History of myocardial infarction Continue aspirin, statin Diastolic congestive heart failure, compensated 2-D echocardiogram reveals preserved global left ventricular ejection fraction, stage I diastolic dysfunction Continue Lasix Dyslipidemia Continue statin GERD Continue PPI DVT prophylaxis Continue Lovenox Pressure Ulcer Injuries Present on Admission Right + Left Elbow Stage 1 Pressure Injury Lower Coccyx Stage 2 Pressure Injury Dispo--the patient remains limited from short of breath secondary to progression of underlying lung cancer. At this time it appears that the patient has seen a significant functional decline in his performance status 2/2 SOB. His options include possible hospice placement vs inpatient chemotherapy. We will follow up with the patient and family decision. PFS on board. Continue PT in the interim. VS, I&O, 24H, Fishbone Vital Signs/I&O Vital Signs Date Time Temp Pulse Resp B/P (MAP) Pulse Ox O2 Delivery O2 Flow Rate FiO2 11/23/16 09:00 119/58 11/23/16 08:22 18 11/23/16 07:45 Nasal Cannula 3.0 11/23/16 06:00 97.8 90 95 I&O- Last 24 Hours up to 6 AM 11/23/16 05:59 Intake Total 780 ml Output Total 2200 ml Balance -1420 ml Laboratory Data 24H LABS Laboratory Tests 2 11/23/16 05:18: Anion Gap 6L, Glomerular Filtration Rate > 60.0, Blood Urea Nitrogen 42H, Creatinine 0.62L, Sodium Level 131L, Potassium Level 3.9, Chloride Level 94L, Carbon Dioxide Level 31, Calcium Level 8.3L CBC/BMP Laboratory Tests 11/23/16 05:18 Red Blood Count 3.93 L, Mean Corpuscular Volume 88.8, Mean Corpuscular Hemoglobin 30.0, Mean Corpuscular Hemoglobin Concent 33.8, Red Cell Distribution Width 17.4 H, Calcium Level 8.3 L Microbiology Microbiology 11/18/16 Blood Culture - Preliminary, Resulted No Growth after 72 hours. All specime... 11/18/16 Blood Culture - Preliminary, Resulted No Growth after 72 hours. All specime... 11/18/16 Gram Stain - Final, Complete 11/18/16 Sputum Culture - Final, Complete CARLOS GROSS MD Nov 23, 2016 11:46
[2016-11-23 14:00] VITALS: BP 123/55
[2016-11-23] MEDS ORDERED: PERCOCET 5MG/325MG TAB PO PRN (18:15)
[2016-11-23] MEDS ORDERED: PERCOCET 5MG/325MG TAB PO ONE (18:20)
[2016-11-23] MEDS ORDERED: guaiFENesin ER 600 MG TAB PO PRN (21:00)
[2016-11-23] MEDS: PRAVASTATIN 20 MG TAB PO SCH (21:33)
[2016-11-23 22:00] VITALS: BP 117/63
[2016-11-24 00:45] VITALS: BP_SYST 100; BP_SYST 117; BP_DIAS 60; BP_DIAS 63
[2016-11-24] MEDS: IPRATROPIUM 0.5MG/ALBUTEROL 2.5MG INH SOL UD 3ML (DUONEB)(J7620) NEB SCH ×2 (02:00→07:56)
[2016-11-24] MEDS ORDERED: NALOXONE INJ 0.4 MG/1 ML VIAL (J2310) IV STA (05:16)
[2016-11-24] MEDS: IPRATROPIUM 0.5MG/ALBUTEROL 2.5MG INH SOL UD 3ML (DUONEB)(J7620) NEB PRN (05:47)
[2016-11-24 06:00] VITALS: BP 118/62
[2016-11-24 06:35] LABS: MEAN CORPUSCULAR HEMOGLOBIN 29.5 pg (27.0-33.0); MEAN CORPUSCULAR HGB CONC 32.8 g/dl (32.0-36.5); MEAN CORPUSCULAR VOLUME 89.7 fl (80.0-96.0); RED CELL DISTRIBUTION WIDTH 17.1 % (11.5-14.5); WHITE BLOOD COUNT 16.5 K/mm3 (4.0-10.0)
[2016-11-24] MEDS: SLF 3 ML SYR IV SCH (06:40)
[2016-11-24 06:53] LABS: ANION GAP 7 MEQ/L (8-16); BLOOD UREA NITROGEN 44 MG/DL (7-18); CALCIUM LEVEL 8.5 MG/DL (8.8-10.2); CARBON DIOXIDE LEVEL 32 MEQ/L (21-32); CHLORIDE LEVEL 93 MEQ/L (98-107); CREATININE FOR GFR 0.64 MG/DL (0.70-1.30); GLOMERULAR FILTRATION RATE > 60.0 (>42); GLUCOSE, FASTING 99 MG/DL (83-110); POTASSIUM SERUM 3.7 MEQ/L (3.5-5.1); SODIUM LEVEL 132 MEQ/L (136-145)
[2016-11-24] MEDS: BUDESONIDE 0.5 MG/2 ML INHALATION SUSPENSION INH SCH (07:56)
[2016-11-24] MEDS ORDERED: FLEET ENEMA PR PRN (11:00)
[2016-11-24] MEDS ORDERED: SCOPOLAMINE 1.5 MG TRANSDERMAL TD PRN (11:00)
[2016-11-24] MEDS: LORazepam 1 MG TAB PO PRN ×3 (11:00→15:36)
[2016-11-24] MEDS ORDERED: ONDANSETRON 4MG/2ML VIAL (J2405) IV PRN (11:00)
[2016-11-24] MEDS: MORPHINE 10MG/0.5ML ORAL CONCENTRATE SOLUTION U/D SL PRN ×2 (14:36→16:51)
--- NOTE | 2016-11-24 14:48 | IPNPDOC ---
Subjective Date Seen The patient was seen on 11/24/16. Subjective Chief Complaint/HPI Patient seen and examined at the bedside this morning. He states that he did not get any rest overnight as he felt intermittent bouts of shortness of breath. He states that he would like to be comfort measures only this morning with his family including his and daughter at the bedside. Objective Physical Examination General Exam: Positive: Alert, Cooperative, No Acute Distress ENT Exam: Positive: Atraumatic, Mucous membr. moist/pink Neck Exam: Negative: JVD Chest Exam: Positive: Diminished, Negative: Rales, Rhonchi Heart Exam: Positive: Rate Normal, Normal S1, Normal S2 Abdomen Exam: Positive: Soft, Negative: Tenderness Extremity Exam: Positive: Other (2+ pitting edema in the lower extremities bilaterally), Negative: Tenderness Psych Exam: Positive: Oriented x 3 Assessment /Plan Plan/VTE VTE Prophylaxis Ordered?: Yes Plan Acute on Chronic Hypoxic Failure possibly 2/2 CAP vs Progression of Underlying Lung Ca Chronic obstructive pulmonary disease Hyponatremia Hypertension, stable History of myocardial infarction Diastolic congestive heart failure, compensated Dyslipidemia GERD Pressure Ulcer Injuries Present on Admission Poor prognosis Code Status--while rounding on the patient at the bedside this morning, the patient stated that he wanted to become comfort measures only. He states that he does not want any further treatment as he has been told that his life expectancy is short and his home attendant prognosis is poor. He also stated that he has bouts of significant respiratory distress which is very difficult to deal with. His and daughter are at the bedside and agree with his decision. At this time, the patient will be made comfort measures only and we will continue to provide supportive treatment. I did contact his oncologist Dr. Osborn this morning, and made her aware of the current situation. She will be in later to further discuss with the patient. VS, I&O, 24H, Fishbone Vital Signs/I&O Vital Signs Date Time Temp Pulse Resp B/P (MAP) Pulse Ox O2 Delivery O2 Flow Rate FiO2 11/24/16 09:00 Nasal Cannula 3.0 11/24/16 06:00 97.7 103 20 118/62 (80) 95 I&O- Last 24 Hours up to 6 AM 11/24/16 06:00 Intake Total 1020 ml Output Total 1425 ml Balance -405 ml Laboratory Data 24H LABS Laboratory Tests 2 11/24/16 06:21: Anion Gap 7L, Glomerular Filtration Rate > 60.0, Blood Urea Nitrogen 44H, Creatinine 0.64L, Sodium Level 132L, Potassium Level 3.7, Chloride Level 93L, Carbon Dioxide Level 32, Calcium Level 8.5L CBC/BMP Laboratory Tests 11/24/16 06:21 Red Blood Count 4.10 L, Mean Corpuscular Volume 89.7, Mean Corpuscular Hemoglobin 29.5, Mean Corpuscular Hemoglobin Concent 32.8, Red Cell Distribution Width 17.1 H, Calcium Level 8.5 L Microbiology Microbiology 11/18/16 Blood Culture - Final, Complete NO GROWTH AFTER 5 DAYS 11/18/16 Blood Culture - Final, Complete NO GROWTH AFTER 5 DAYS 11/18/16 Gram Stain - Final, Complete 11/18/16 Sputum Culture - Final, Complete CARLOS GROSS MD Nov 24, 2016 14:48
[2016-11-24] MEDS ORDERED: HALOPERIDOL 5 MG/ML VIAL (J1630) IV PRN (16:00)
[2016-11-24] MEDS ORDERED: HYDROmorphone HCL 1 MG/ML SYRINGE (J1170) IV PRN (17:00)
[2016-11-24] MEDS: LORazepam 2 MG/ML VIAL (J2060) IV PRN ×3 (17:06→23:01)
[2016-11-25] MEDS: HYDROmorphone HCL 1 MG/ML SYRINGE (J1170) IV PRN ×5 (00:30→19:39)
[2016-11-25] MEDS: LORazepam 2 MG/ML VIAL (J2060) IV PRN ×8 (02:27→22:12)
--- NOTE | 2016-11-25 07:17 | CR ---
MEDICAL ONCOLOGY INPATIENT CONSULTATION: DATE OF SERVICE: 11/24/2016 Mr. 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 He presented with bulky parenchymal tumor and mediastinal adenopathy and symptomatic iliac bone metastases. After two cycles of carboplatin/taxol, and denosumab, his bone symptoms resolved, but restaging scans showed stable disease to mild progression and he was switched to carboplatin/etoposide targeting a potentially more aggressive disease such as large cell neuroendocrine type, in light of undifferentiated tumor. Unfortunately soon after his second carboplatin/etoposide he had progressive dyspnea and was admitted to [facility] for what was thought to be post-obstructive pneumonia. Despite antibiotics his oxygenation and breathing did not improved and late last week he was transferred to [facility] for futher care. CT angio at [facility] was negative for PE. Dedicated CT here demonstrates diseaes progression with lymphangitic infiltration bilaterally and a moderate left pleural effusion. In my absence hospice care was discussed but Mukesh wanted to wait to discuss the case with me; however his symptoms progressed this morning and he and his family requested comfort measures only. At the bedside tonight the entire family is gathered. The patient was in distress, complaining of difficulty breathing. His eyes closed, sitting upright , tripoding. At length, after additional Ativan, IV, Roxanol, and 0.2 mg IV Dilaudid, he was able to calmly recline and appeared to sleep breathing at approximately 15-16, cycles per minute. He has been on 3-4 liters of O2 nasal cannula. His O2 sats are notably reasonable in the mid 90s and he does not use accessory muscles to breathe but complains of feeling short of breath and being generally uncomfortable. Once sedated and out of pain. I was able to speak with Dimitris. Dimitris was not responding immediately to questions but I spoke extensively with his family, counseled continuation of comfort measures only, I have spoken with Dr. Molina and the anxiolytics and analgesics have been increased and broadened with good response. It may be that Dimitris lives only a few days, and I counseled the family same. They want him to be out of discomfort and are accepting of his terminal diagnosis and end-stage condition. Current medications include lorazepam 2 mg hourly as needed for agitation, hydromorphone 0.2 mg IV every 3 hours as needed for mild pain. Hydromorphone 0.4 mg every 3 hours as needed for moderate pain, haloperidol every 6 hours as needed for agitation, scopolamine 1.5 mg for secretions, morphine sulfate 2 mg every 2 hours prn orally for severe pain in addition as well as antiemetics. IMPRESSION: End-stage poorly differentiated lung carcinoma with evidence of lymphangitic spread in the left and right lungs, moderate pleural effusion, bone metastases, refractory to palliative chemotherapy and with performance status too poor to consider alternate treatment such as immunotherapy. The patient is DNR/DNI/ comfort measures only. He is currently out of pain and breathing distress, non-over sedated and comfortable. The family understands his is likely eminent. They have been discussing hospice in a [facility] setting. Whether this will be required is unclear but efforts toward this should continue. Rosi, his , is unable to care for Mukesh. They [place] in [place] area of the [facility] and his needs will be greater than she can manage independently. I will continue to follow during this hospitalization. STACY
--- NOTE | 2016-11-25 09:20 | IPNPDOC ---
Subjective Date Seen The patient was seen on 11/25/16. Subjective Chief Complaint/HPI Patient seen and examined at the bedside this morning. Appears to be confused, obtunded. No acute overnight events noted. Objective Physical Examination General Exam: Positive: No Acute Distress ENT Exam: Positive: Atraumatic, Mucous membr. moist/pink, Other ENT ( Bitemporal wasting ntoed) Neck Exam: Negative: JVD Chest Exam: Positive: Diminished, Negative: Rales, Rhonchi Heart Exam: Positive: Rate Normal, Normal S1, Normal S2 Abdomen Exam: Positive: Soft, Negative: Tenderness Extremity Exam: Positive: Other (2+ pitting edema in the lower extremities bilaterally), Negative: Tenderness Assessment /Plan Plan/VTE VTE Prophylaxis Ordered?: Yes Plan Acute on Chronic Hypoxic Failure possibly 2/2 CAP vs Progression of Underlying Lung Ca Chronic obstructive pulmonary disease Hyponatremia Hypertension, stable History of myocardial infarction Diastolic congestive heart failure, compensated Dyslipidemia GERD Pressure Ulcer Injuries Present on Admission Poor prognosis, Oncology input appreciated. Dispo--I discussed disposition with the patient's sister at the bedside this AM. We will work with PFS to further delineate disposition at this time, which includes house of hospice vs hospice at the [facility]. VS, I&O, 24H, Fishbone Vital Signs/I&O Vital Signs Date Time Temp Pulse Resp B/P (MAP) Pulse Ox O2 Delivery O2 Flow Rate FiO2 11/25/16 08:02 Nasal Cannula 3.0 11/25/16 00:30 25 11/24/16 06:00 97.7 103 118/62 (80) 95 I&O- Last 24 Hours up to 6 AM 11/25/16 06:00 Intake Total 0 ml Output Total 300 ml Balance -300 ml Laboratory Data Microbiology Microbiology 11/18/16 Blood Culture - Final, Complete NO GROWTH AFTER 5 DAYS 11/18/16 Blood Culture - Final, Complete NO GROWTH AFTER 5 DAYS 11/18/16 Gram Stain - Final, Complete 11/18/16 Sputum Culture - Final, Complete CARLOS GROSS MD Nov 25, 2016 09:20
--- NOTE | 2016-11-26 10:48 | DS.PDOC ---
Discharge Summary General Date of Admission Nov 18, 2016 at 19:18 Date of Discharge 11/25/16 Specialist/Consultants Involve: Crys Osborn MD Discharge Summary PROCEDURES PERFORMED DURING STAY: None. ADMITTING DIAGNOSES: Acute on Chronic Hypoxic Failure possibly 2/2 CAP vs Progression of Underlying Lung Ca Chronic obstructive pulmonary disease Hyponatremia Hypertension, stable History of myocardial infarction Diastolic congestive heart failure, compensated Dyslipidemia Pressure Ulcer Injuries present on admission GERD DISCHARGE DIAGNOSES: Acute on Chronic Hypoxic Failure possibly 2/2 CAP vs Progression of Underlying Lung Ca Chronic obstructive pulmonary disease Hyponatremia Hypertension, stable History of myocardial infarction Diastolic congestive heart failure, compensated Dyslipidemia Pressure Ulcer Injuries present on admission GERD COMPLICATIONS/CHIEF COMPLAINT: Pnemonia. HISTORY OF PRESENT ILLNESS: . 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 The patient was initially treated at [facility] for a possible postobstructive pneumonia picture. However after a trial of antibiotic and steroid therapy, the patient's clinical condition did not improve. The patient was only sent to [facility] for an oncology consultation with the patient's oncologist Dr. Osborn. During hospitalization here, a repeat CT scan of the chest was obtained and this revealed disease progression with lymphangitic infiltration bilaterally and a moderate left-sided pleural effusion. The patient's refractory dyspnea unfortunately did not improve. The patient was seen by oncology here and hospice care was recommended. The patient and the family decided to make the patient comfort measures only on 11/24/16. The patient was pronounced on 11/25/16 at approximately 10:30 PM. DISCHARGE MEDICATIONS: Please see below. ALLERGIES: Please see below. LABORATORY DATA: Please see below. IMAGING: CT of the chest without contrast Clinical statement: Shortness of breath. Lung cancer. Technique: Multiple axial CT images were obtained with 5 mm cuts through the chest without administration of contrast. Comparison: 07/31/2016. Findings: There is no thoracic lymphadenopathy. The visualized portions of the thyroid gland is unremarkable. There is minimal patchy infiltrate in the left lower lobe. There are interstitial reticulonodular infiltrates throughout the right lung, predominantly in right lower lobe. There is a moderate right lower lobe pleural effusion as well. Limited imaging of the upper abdomen demonstrates bilateral adrenal masses. The right adrenal mass measures 4.9 x 2.2 cm, and the left adrenal mass measures 4.0 x 2.9 cm. Cholelithiasis is also noted. There are no suspicious osseous lesions. Impression: 1. Diffuse interstitial reticulonodular infiltrate throughout the right lung, probably the right lower lobe with moderate right-sided pleural effusion. 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 No discrete pulmonary nodules are seen. Clinical correlation is recommended. 2. Minimal patchy infiltrate in the left lower lobe. 3. Bilateral adrenal masses, suspicious for metastatic disease. 4. Cholelithiasis. PROGNOSIS: DISCHARGE CONDITION: . TIME SPENT ON DISCHARGE: Greater than 30 minutes. Vital Signs/I&Os Vital Signs Date Time Temp Pulse Resp B/P (MAP) Pulse Ox O2 Delivery O2 Flow Rate FiO2 11/25/16 20:00 Nasal Cannula 3.0 11/25/16 00:30 25 11/24/16 06:00 97.7 103 118/62 (80) 95 I&O- Last 24 Hours up to 6 AM 11/26/16 06:00 Intake Total 0 ml Balance 0 ml Microbiology Microbiology 11/18/16 Blood Culture - Final, Complete NO GROWTH AFTER 5 DAYS 11/18/16 Blood Culture - Final, Complete NO GROWTH AFTER 5 DAYS 11/18/16 Gram Stain - Final, Complete 11/18/16 Sputum Culture - Final, Complete Discharge Medications Scheduled Albuterol/Ipratropium (Ipratropium Wilson/Albut 0.5-2.5 (3) mg/3Ml) 1 Sawyer Sawyer, 1 SAWYER INH Q6H, (Reported) INPATIENT MED AT [facility] Aspirin (Aspir-81) 81 Mg Tab, 81 MG PO DAILY, (Reported) HOME MED Budesonide (Budesonide) 0.5 Mg/2 Ml Neb, 0.5 MG INH BID, (Reported) INPATIENT MED AT [facility] Enoxaparin Sodium (Enoxaparin Sodium) 40 Mg/0.4 Ml Inj, 40 MG SC DAILY, ( Reported) INPATIENT MED AT [facility] Furosemide (Furosemide) 20 Mg/2 Ml Soln, 20 MG IV BID, (Reported) INPATIENT MED AT [facility] Guaifenesin (Guaifenesin ER) 600 Mg Tab, 600 MG PO Q12H, (Reported) INPATIENT MED AT [facility] Levofloxacin Hemihydrate (Levofloxacin) 750 Mg Tab, 750 MG PO DAILY, (Reported) GIVEN AT [facility] Losartan Potassium (Losartan Potassium) 50 Mg Tab, 50 MG PO DAILY, (Reported) HOME MED Meropenem (Meropenem) 1 Gm Inj, 1 GM IV Q8H, (Reported) GIVEN AT [facility] Pantoprazole Sodium (Pantoprazole Sodium) 40 Mg Tab, 40 MG PO DAILY, (Reported) INPATIENT MED AT [facility] Pegfilgastrim (Neulasta) 6 Mg/0.6 Ml Inj, 6 MG SC ASDIRECTED, (Reported) RECEIVES EVERY 3 WEEKS AFTER CHEMO TX Pravastatin Sod (Pravastatin Sodium) 40 Mg Tab, 80 MG PO QHS, (Reported) HOME MED Prednisone (Prednisone) 10 Mg Tab, 30 MG PO BIDWM, (Reported) INPATIENT MED AT [facility] Scheduled PRN Albuterol Sulfate (Proventil Hfa) 167 Puff/6.7 Gm Aers, 2 PUFFS INH QID PRN for SHORTNESS OF BREATH, (Reported) Albuterol Sulfate (Albuterol Sulfate) 2.5 Mg/0.5 Ml Neb, 2.5 MG INH Q2H PRN for SOB/WHEEZING, (Reported) INPATIENT MED AT [facility] Benzonatate (Benzonatate) 100 Mg Cap, 100 MG PO TID PRN for COUGH, (Reported) Oxycodone/Acetaminophen (Oxycodone/Acetaminophen 5-325 mg) 1 Tab Tab, 1 TAB PO Q6H PRN for PAIN, (Reported) Allergies Coded Allergies: No Known Allergies (Unverified , 07/14/16) CARLOS GROSS MD Nov 26, 2016 10:48
== END 2016-11-25 22:32 | disposition expired | DRG 180 ==
LOC: M PCU 19:18 → M MS5PR 11-21 15:12
PROVIDERS: ADMIT Internal Medicine; ATTEND Internal Medicine
DX: C34.90 Malignant neoplasm of unspecified part of unspecified bronchus or lung (principal); J96.01 Acute respiratory failure with hypoxia; J18.9 Pneumonia, unspecified organism; J44.0 Chronic obstructive pulmonary disease with (acute) lower respiratory infection; E87.1 Hypo-osmolality and hyponatremia; I50.30 Unspecified diastolic (congestive) heart failure; C79.51 Secondary malignant neoplasm of bone; C79.71 Secondary malignant neoplasm of right adrenal gland; C79.72 Secondary malignant neoplasm of left adrenal gland; C77.3 Secondary and unspecified malignant neoplasm of axilla and upper limb lymph nodes; C77.1 Secondary and unspecified malignant neoplasm of intrathoracic lymph nodes; I25.2 Old myocardial infarction; K21.9 Gastro-esophageal reflux disease without esophagitis; E78.5 Hyperlipidemia, unspecified; I11.9 Hypertensive heart disease without heart failure; Z51.5 Encounter for palliative care; K80.20 Calculus of gallbladder without cholecystitis without obstruction; Z79.899 Other long term (current) drug therapy; I73.9 Peripheral vascular disease, unspecified; Z87.891 Personal history of nicotine dependence; Z77.090 Contact with and (suspected) exposure to asbestos; Z79.82 Long term (current) use of aspirin; L89.011 Pressure ulcer of right elbow, stage 1; L89.021 Pressure ulcer of left elbow, stage 1; L89.152 Pressure ulcer of sacral region, stage 2